=== PATIENT | male | born 2000 | race Caucasian/White ===

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

== ENCOUNTER 2019-10-11 19:39 | Observation (INO) ==
[2019-10-11] MEDS ORDERED: DiphenhydrAMINE HCL 50 MG/ML VIAL IV STA (19:54)
[2019-10-11] MEDS ORDERED: ACETAMINOPHEN 1,000 MG/100 ML VIAL IV STA (19:54)
[2019-10-11] MEDS ORDERED: SODIUM CHLORIDE 0.9% 1000ML 1,000 ML IV ONE (19:54)
[2019-10-11 20:01] LABS: Basophils # (auto) 0.02 K/uL (0-0.2); Basophils % (auto) 0.2 %; Eosinophils # (auto) 0.16 K/uL (0-0.5); Eosinophils % (auto) 1.4 %; Hematocrit (blood only) 41.5 % (42-52); Hemoglobin 14.9 g/dL (14.0-18.0); Immature Granulocytes # (auto) 0.03 K/uL (0.00-0.02); Immature Granulocytes % (auto) 0.3 %; Lymphocytes # (auto) 1.81 K/uL (1.2-3.4); Lymphocytes % (auto) 15.3 %; Mean Corpuscular Hemoglobin 31.8 pg (25-34); Mean Corpuscular Hgb Conc 35.9 g/dL (32-36); Mean Corpuscular Volume 88.7 fL (80-100); Mean Platelet Volume 11.8 fL (7.4-10.4); Monocytes # (auto) 1.03 K/uL (0.11-0.59); Monocytes % (auto) 8.7 %; Neutrophils # (auto) 8.77 K/uL (1.4-6.5); Neutrophils % (auto) 74.1 %; Platelet Count 168 K/uL (130-400); RDW Coefficient of Variation 12.4 % (11.5-14.5); RDW Standard Deviation 39.5 fL (36.4-46.3); Red Blood Count 4.68 M/uL (4.7-6.1); White Blood Count 11.82 K/uL (4.8-10.8)
[2019-10-11 20:40] LABS: Albumin Globulin Ratio 1.2 (0.9-2); BUN Creatinine Ratio 17.4 (10-20); Bilirubin,Total 0.3 mg/dl (0.2-1); Calcium 8.8 mg/dl (8.5-10.1); Creatinine Clr Calc Pharmacy 145.7 ml/min; Est GFR (African American) 128.1; Est GFR (Non-African American) 110.5; Globulin 3.3 gm/dl (2.5-4.0); Potassium 3.9 mmol/L (3.5-5.1); Total Protein 7.3 gm/dl (6.4-8.2)
[2019-10-11] MEDS ORDERED: IOVERSOL 100ml IV PRN (20:53)
[2019-10-11 21:13] LABS: Appearance Urine Clear (Clear); Bilirubin Urine Negative (Negative); Blood Urine Negative (Negative); Color Urine Yellow; Glucose Urine UA Negative (Negative); Ketones Urine Negative (Negative); Leukocyte Esterase Urine Negative (Negative); Nitrite Urine Negative (Negative); Protein Urine Negative (Negative); Specific Gravity Urine 1.025 (1.000-1.030); Urobilinogen Urine Negative (Negative); pH Urine 5.5 (4.5-7.5)
--- NOTE | 2019-10-11 21:19 | CT Scan Report ---
CT abd pelvis IV con only CT DOSE: 533.61 mGy.cm HISTORY: Flank pain right sided abd pain TECHNIQUE: Multiaxial CT images of the abdomen and pelvis were performed following the use of intrave nous contrast. A dose lowering technique was utilized adhering to the principles of ALARA. COMPARISON STUDY: None. FINDINGS: Lung bases are clear. Liver spleen and pancreas are unremarkable. Kidneys are considered ne gative for hydronephrosis or nephrocalcinosis. The appendix is identified immediately inferior to the right hepatic lobe. There is a small contained appendicolith. This measures 5 mm. Appendix demonstrates a maximum diameter 1 cm. There is moderate periappendiceal infiltrative change. No evidence for abscess collection or obstructive change. The bowel pattern otherwise is nonobstructive. There are findings of mild reactive mesenteric adenopathy. No evidence for drainable abscess collection or obstructive change. No free fluid within the pelvic c ul-de-sac. Bladder is mildly distended. Scattered colonic diverticuli with no evidence for diverticulitis. IMPRESSION: 1. Acute appendicitis. 2. Small 5 mm appendicolith. 3. Mild periappendiceal infiltrative change. 4. No evidence for abscess collection or obstructive change. 5. Moderate reactive mesenteric adenopathy ACT 112: Negative or not required by law. The above report was generated using voice recognition software. It may contain grammatical, syntax or spelling errors. Electronically signed by: Андрей Lundy M.D. 10/11/2019 9:18 PM
[2019-10-11] MEDS ORDERED: cefOXitin 2,000 MG/60 ML BAG IV STA ×2 (21:22→22:24)
[2019-10-11] MEDS ORDERED: MoRPHine SULFATE 10 MG/ML CARP/VIAL IV STA (21:22)
--- NOTE | 2019-10-11 21:30 | Emergency Department Note ---
Impression & Plan Acute appendicitis, Acute abdominal pain in right lower quadrant ED Provider Note NAME: JUANITA Meadows YOUNG AGE: 19 SEX: M ARRIVES VIA: Walk-In INFORMANT: Patient, ED PROVIDER(S): Adria Pineda MD CHIEF COMPLAINT: Abdominal pain PLAN: Disposition: Admit MEDICAL DECISION MAKING: The patient is a pleasant 27-year-old gentleman with a past medical history of Tourette's syndrome who presents emergency department for evaluation of right-sided abdominal pain that has been evolving over the past 4 days. The patient has any fevers, chills, nausea, vomiting, diarrhea. He reports he has been able to eat but not as much as usual as this provokes his pain. Of note, the patient was seen in the emergency department for similar symptoms on August 19 and also February 17, 2019. Reports these symptoms are similar but worse in severity. On arrival the patient is no acute distress, afebrile stable vital signs. On exam patient has mild right lower quadrant tenderness without guarding or rebound. WBC 11.8. Hemoglobin and platelets within normal limits. Chemistry without acidosis. Electrolytes and LFTs unremarkable. Lipase within normal limits. UA negative. CT of abdomen pelvis was performed and demonstrates findings consistent with acute appendicitis with the appendix demonstrating a maximum diameter of 1 cm with moderate periappendiceal infiltrative change and a 5 mm appendicolith. The patient was updated on the CT findings. He was ordered for cefoxitin. Case was discussed with Dr. Murillo, general surgery on-call who evaluated the patient at the bedside and admitted the patient to the OR. Triage Nursing notes reviewed and agree them. Prior medical records reviewed Vital Signs: reviewed and remarkable for no significant abnormalities Differential diagnosis: Appendicitis, testicular torsion, infections, diverticulitis, UTI, obstruction, mesenteric ischemia, aortic pathology, inflammatory bowel disease, renal colic, PUD, pancreatitis, biliary pathology, hernia, volvulus, constipation, as well as other pathologies. ER treatment provided: See below. Laboratory studies: See below Imaging studies: CT abd pelvis IV con only CT DOSE: 533.61 mGy.cm HISTORY: Flank pain right sided abd pain TECHNIQUE: Multiaxial CT images of the abdomen and pelvis were performed following the use of intravenous contrast. A dose lowering technique was utilized adhering to the principles of ALARA. COMPARISON STUDY: None. FINDINGS: Lung bases are clear. Liver spleen and pancreas are unremarkable. Kidneys are considered negative for hydronephrosis or nephrocalcinosis. The appendix is identified immediately inferior to the right hepatic lobe. There is a small contained appendicolith. This measures 5 mm. Appendix demonstrates a maximum diameter 1 cm. There is moderate periappendiceal infiltrative change. No evidence for abscess collection or obstructive change. The bowel pattern otherwise is nonobstructive. There are findings of mild reactive mesenteric adenopathy. No evidence for drainable abscess collection or obstructive change. No free fluid within the pelvic cul-de-sac. Bladder is mildly distended. Scattered colonic diverticuli with no evidence for diverticulitis. IMPRESSION: 1. Acute appendicitis. 2. Small 5 mm appendicolith. 3. Mild periappendiceal infiltrative change. 4. No evidence for abscess collection or obstructive change. 5. Moderate reactive mesenteric adenopathy Consultation(s): Dr. Murillo, general surgery on-call HPI: The patient is a pleasant 27-year-old gentleman with a past medical history of Tourette's syndrome who presents emergency department for evaluation of right-sided abdominal pain that has been evolving over the past 4 days. The patient has any fevers, chills, nausea, vomiting, diarrhea. He reports he has been able to eat but not as much as usual as this provokes his pain. Of note, the patient was seen in the emergency department for similar symptoms on August 19 and also February 17, 2019. Reports these symptoms are similar but worse in severity. ROS: See above HPI for pertinent positives & negatives. A total of 10 systems reviewed and were otherwise negative. PAST MEDICAL HISTORY:See Below PAST SURGICAL HISTORY:See Below FAMILY HISTORY:See Below SOCIAL HISTORY:See Below HOME MEDICATIONS:See Below ALLERGIES:See Below VITALS:See Below PHYSICAL EXAMINATION: GENERAL: Awake, alert, well-appearing, in no distress HENT: Normocephalic, atraumatic. Oropharynx with dry mucous membranes and otherwise unremarkable. EYES: Normal conjunctiva. Sclera non-icteric. NECK: Supple. No nuchal rigidity. FROM. No JVD. RESPIRATORY: Clear to auscultation. CARDIAC: Regular rate, normal rhythm. Extremities warm and well perfused. Pulses equal. ABDOMEN: Soft, non-distended. Mild right lower quadrant tenderness to palpation. No rebound or guarding. No masses. RECTAL: Deferred. MUSCULOSKELETAL: Chest examination reveals no tenderness. The back is symmetrical on inspection without obvious abnormality. There is no CVA tenderness to palpation. No joint edema. LOWER EXTREMITIES: Calves are equal size bilaterally and non-tender. No edema. No discoloration. NEURO: Normal sensorium. No sensory or motor deficits noted. SKIN: No rash or jaundice noted. Adria Pineda MD Past Med/Surg History Medical History Tourettes syndrome (Chronic) Surgical History S/P right knee arthroscopy Social History Preferred Language: [place] Feels Safe at Home: Yes Smoking Status: Never smoker Allergies Allergies Allergy/AdvReac Type Severity Reaction Status Date / Time No Known Allergies Allergy Verified 10/11/19 20:00 Home Meds Home Medications Medication Instructions Recorded Confirmed fluoxetine 20 mg PO HS 02/17/19 10/11/19 aripiprazole 5 mg PO HS 08/20/19 10/11/19 Results & Data (ED) Vital Signs Vital Signs - 24 hr 10/11/19 19:41 10/11/19 20:10 10/11/19 21:01 Temperature 36.6 C Temperature Source Oral Pulse Rate 82 Pulse Rate [Apical] 79 81 Pulse Rhythm Regular Pulse Strength Normal Respiratory Rate 20 18 18 Respiratory Effort / Characteristics Non-Labored Spontaneous Respiratory Depth Normal Respiratory Pattern Regular Blood Pressure 131/78 Blood Pressure [Left Arm] 130/68 131/71 Blood Pressure Mean 95 Blood Pressure Mean [Left Arm] 88 91 Blood Pressure Position Sitting Pulse Oximetry 100 99 99 Oxygen Delivery Method Room Air Room Air Room Air Sepsis Recent Fever Within 48 Hours No Sepsis New/Unexplained Change in Mental Status No Sepsis Action Taken by Nursing No Action Required 10/11/19 21:30 10/11/19 22:37 Temperature Temperature Source Pulse Rate Pulse Rate [Apical] 85 78 Pulse Rhythm Pulse Strength Respiratory Rate 18 18 Respiratory Effort / Characteristics Respiratory Depth Respiratory Pattern Blood Pressure Blood Pressure [Left Arm] 123/50 L 123/54 L Blood Pressure Mean Blood Pressure Mean [Left Arm] 74 77 Blood Pressure Position Pulse Oximetry 99 99 Oxygen Delivery Method Room Air Room Air Sepsis Recent Fever Within 48 Hours Sepsis New/Unexplained Change in Mental Status Sepsis Action Taken by Nursing Laboratory Data Attestation: I reviewed the patient's lab results. Result diagrams: 10/11/19 19:52 10/11/19 19:52 Lab Results 10/11/19 10/11/19 10/11/19 Range/Units 19:52 19:52 21:02 WBC 11.82 H (4.8-10.8) K/uL RBC 4.68 L (4.7-6.1) M/uL Hgb 14.9 (14.0-18.0) g/dL Hct 41.5 L (42-52) % MCV 88.7 (80-100) fL MCH 31.8 (25-34) pg MCHC 35.9 (32-36) g/dL RDW Std Deviation 39.5 (36.4-46.3) fL RDW Coeff of Sarah 12.4 (11.5-14.5) % Plt Count 168 (130-400) K/uL MPV 11.8 H (7.4-10.4) fL Immature Gran % (Auto) 0.3 % Neut % (Auto) 74.1 % Lymph % (Auto) 15.3 % [place] % (Auto) 8.7 % Eos % (Auto) 1.4 % Baso % (Auto) 0.2 % Immature Gran # (Auto) 0.03 H (0.00-0.02) K/uL Neut # (Auto) 8.77 H (1.4-6.5) K/uL Lymph # (Auto) 1.81 (1.2-3.4) K/uL [place] # (Auto) 1.03 H (0.11-0.59) K/uL Eos # (Auto) 0.16 (0-0.5) K/uL Baso # (Auto) 0.02 (0-0.2) K/uL Sodium 139 (136-145) mmol/L Potassium 3.9 (3.5-5.1) mmol/L Chloride 105 (98-107) mmol/L Carbon Dioxide 29 (21-32) mmol/L Anion Gap 5.0 (3-11) BUN 17 (7-18) mg/dl Creatinine 0.98 (0.6-1.4) mg/dl Est Cr Clr Drug Dosing 145.7 ml/min Est GFR ( Amer) 128.1 Est GFR (Non-Af Amer) 110.5 BUN/Creatinine Ratio 17.4 (10-20) Glucose 109 H (70-99) mg/dl Calcium 8.8 (8.5-10.1) mg/dl Total Bilirubin 0.3 (0.2-1) mg/dl AST 36 (15-37) U/L ALT 51 (12-78) U/L Alkaline Phosphatase 95 (45-117) U/L Total Protein 7.3 (6.4-8.2) gm/dl Albumin 4.0 (3.4-5.0) gm/dl Globulin 3.3 (2.5-4.0) gm/dl Albumin/Globulin Ratio 1.2 (0.9-2) Lipase 103 (73-393) U/L Urine Color Yellow Urine Appearance Clear (Clear) Urine pH 5.5 (4.5-7.5) Ur Specific [place] 1.025 (1.000-1.030) Urine Protein Negative (Negative) Urine Glucose (UA) Negative (Negative) Urine Ketones Negative (Negative) Urine Blood Negative (Negative) Urine Nitrite Negative (Negative) Urine Bilirubin Negative (Negative) Urine Urobilinogen Negative (Negative) Ur Leukocyte Esterase Negative (Negative) Administered Medications Ioversol (Optiray 320 100ml) 93 ml IV ONCE PRN PRN Reason: Interaction Checking Stop: 10/15/19 20:52 Last Admin: 10/11/19 20:53 Dose: 93 ml Documented by: [id number] Discontinued Medications Diphenhydramine HCl (Benadryl) 25 mg IV NOW STA Stop: 10/11/19 19:55 Last Admin: 10/11/19 20:08 Dose: 25 mg Documented by: [id number] Sodium Chloride (Nss 1000ml) 1,000 mls @ 999 mls/hr IV .Q1H1M ONE Stop: 10/11/19 20:54 Last Infusion: 10/11/19 21:08 Dose: 0 mls/hr Documented by: [id number] Admin: 10/11/19 20:07 Dose: 999 mls/hr Documented by: [id number] Acetaminophen (Ofirmev) 1,000 mg in 100 mls @ 400 mls/hr IV NOW STA Stop: 10/11/19 20:08 Last Infusion: 10/11/19 20:28 Dose: 0 mls/hr Documented by: [id number] Admin: 10/11/19 20:09 Dose: 400 mls/hr Documented by: [id number] Cefoxitin Sodium (Mefoxin) 2,000 mg in 60 mls @ 100 mls/hr IV NOW STA Stop: 10/11/19 21:57 Last Infusion: 10/11/19 22:16 Dose: 0 mls/hr Documented by: [id number] Admin: 10/11/19 21:35 Dose: 100 mls/hr Documented by: [id number] Morphine Sulfate (Morphine Sulfate) 8 mg IV NOW STA Stop: 10/11/19 21:23 Last Admin: 10/11/19 21:35 Dose: 8 mg Documented by: [id number] Blood Pressure Blood Pressure Findings: Normal blood pressure Discharge Plan Visit Data *Final* Discharge Date/Time: 10/11/19 22:53 Chief Complaint: Abdominal Pain Stated Complaint: SEVERE STOMACH PAIN ED Provider: Adria Pineda Discharge Problem: Acute appendicitis, Acute abdominal pain in right lower quadrant Patient Disposition: Still a Patient Discharge Instructions Interventions: ED Discharge Assessment Last Done: 10/11/19 22:53 Discharge Problem: Acute appendicitis Qualifiers: Acute appendicitis type: unspecified acute appendicitis type Qualified Code(s): K35.80 - Unspecified acute appendicitis
--- NOTE | 2019-10-11 22:29 | Surgery Consultation ---
Date of Consultation October 11, 2019 Assessment & Plan (1) Acute abdominal pain in right lower quadrant: pt is a 19 year-old male who presents to ER with 4 days history RLQ Pain, IMP: acute abdominal pain, acute appendicitis, Plan, I recommend to do laparoscopic appendectomy, possible open, D/W benefits, risks and alternatives of the surgery, the risks - infection, bleeding, injury bowel, abscess, pt understood, he agrees with surgery, I answered all questions, (2) Acute appendicitis: History of Present Illness History of Present Illness CC: abdominal pain HPI: The patient is a pleasant 27-year-old gentleman with a past medical history of Tourette's syndrome who presents emergency department for evaluation of right-sided abdominal pain that has been evolving over the past 4 days. The patient has any fevers, chills, nausea, vomiting, diarrhea. He reports he has been able to eat but not as much as usual as this provokes his pain. Of note, the patient was seen in the emergency department for similar symptoms on August 19 and also February 17, 2019. Reports these symptoms are similar but worse in severity. I ( Hyacinth Murillo MD) reviewed pt's H/P , labs, CT scan with pt, pt is still have RLQ pain, ROS: See above HPI for pertinent positives & negatives. A total of 10 systems reviewed and were otherwise negative. PAST MEDICAL HISTORY: See Below PAST SURGICAL HISTORY: See Below FAMILY HISTORY: See Below SOCIAL HISTORY: See Below HOME MEDICATIONS: See Below ALLERGIES: See Below Allergies Allergy/AdvReac Type Severity Reaction Status Date / Time No Known Allergies Allergy Verified 10/11/19 20:00 Home Medications Home Medications Medication Instructions Recorded Confirmed Type fluoxetine 20 mg PO HS 02/17/19 10/11/19 History aripiprazole 5 mg PO HS 08/20/19 10/11/19 History Patient History Medical History Tourettes syndrome (Chronic) Social History Preferred Language: Welsh Feels Safe at Home: Yes Smoking Status: Never smoker Review of Systems Review of Systems: All systems reviewed & are unremarkable except as noted in HPI & below Constitutional: as per Subjective / HPI Eyes: as per Subjective / HPI Ear, Nose, Mouth, Throat: as per Subjective / HPI Respiratory: as per Subjective / HPI Cardiovascular: as per Subjective / HPI Gastrointestinal: as per Subjective / HPI RLQ pain Genitourinary: + as per Subjective / HPI Musculoskeletal: as per Subjective / HPI Integumentary: as per Subjective / HPI Neurologic: as per Subjective / HPI Psychiatric: as per Subjective / HPI Endocrine: as per Subjective / HPI Hematologic / Lymphatic: as per Subjective / HPI Physical Exam 2 Constitutional: WD/WN, vitals as above well developed and well nourished Eyes: PERRL, conjunctivae normal, anicteric sclerae ENMT: external ear and nose normal, oropharynx normal Neck: trachea midline, no thyromegaly Respiratory: normal respiratory effort, lungs clear to auscultation Cardiovascular: RRR, no murmur, no edema Rate/Rhythm: regular rate and regular rhythm Heart Sounds: normal S1 and normal S2 Gastrointestinal (Abdomen): Percussion/Palpation: + abdomen tender and abdomen soft tenderness at RLQ with rebound pain, no distend, BS + Musculoskeletal: no cyanosis or clubbing, extremities motor strength 5/5 Skin: no rashes, warm and dry Neurologic: patellar DTR's 2+ bilat, sensation intact Psychiatric: Orientation: alert and oriented x 3 Results & Data Vital Signs (Past 12 Hours) Vital Signs Temp Pulse Pulse Resp BP BP Pulse Ox 10/11/19 21:30 85 18 123/50 L 99 10/11/19 21:01 81 18 131/71 99 10/11/19 20:10 79 18 130/68 99 10/11/19 19:41 36.6 C 82 20 131/78 100 Laboratory Results Abnormal lab results 10/11/19 10/11/19 Range/Units 19:52 19:52 WBC 11.82 H (4.8-10.8) K/uL RBC 4.68 L (4.7-6.1) M/uL Hct 41.5 L (42-52) % MPV 11.8 H (7.4-10.4) fL Immature Gran # (Auto) 0.03 H (0.00-0.02) K/uL Neut # (Auto) 8.77 H (1.4-6.5) K/uL [place] # (Auto) 1.03 H (0.11-0.59) K/uL Glucose 109 H (70-99) mg/dl Diagnostic Findings CT abd pelvis IV con only CT DOSE: 533.61 mGy.cm HISTORY: Flank pain right sided abd pain TECHNIQUE: Multiaxial CT images of the abdomen and pelvis were performed following the use of intravenous contrast. A dose lowering technique was utilized adhering to the principles of ALARA. COMPARISON STUDY: None. FINDINGS: Lung bases are clear. Liver spleen and pancreas are unremarkable. Kidneys are considered negative for hydronephrosis or nephrocalcinosis. The appendix is identified immediately inferior to the right hepatic lobe. There is a small contained appendicolith. This measures 5 mm. Appendix demonstrates a maximum diameter 1 cm. There is moderate periappendiceal infiltrative change. No evidence for abscess collection or obstructive change. The bowel pattern otherwise is nonobstructive. There are findings of mild reactive mesenteric adenopathy. No evidence for drainable abscess collection or obstructive change. No free fluid within the pelvic cul-de-sac. Bladder is mildly distended. Scattered colonic diverticuli with no evidence for diverticulitis. IMPRESSION: 1. Acute appendicitis. 2. Small 5 mm appendicolith. 3. Mild periappendiceal infiltrative change. 4. No evidence for abscess collection or obstructive change. 5. Moderate reactive mesenteric adenopathy
--- NOTE | 2019-10-11 22:36 | History & Physical Bridge Note ---
Date of Service October 11, 2019 History & Physical Bridge Note I have examined the patient, reviewed the History & Physical and in the interval since the performance of the History & Physical I have noted the following changes of clinical significance: no changes noted
[2019-10-11] MEDS ORDERED: SUCCINYLCHOLINE CHLORIDE 20 MG/ML 10 ML VIAL ONE (22:37)
[2019-10-11] MEDS ORDERED: ePHEDrine sulfate 50 MG/ML AMP ONE (22:37)
[2019-10-11] MEDS ORDERED: PHENYLEPHRINE HCL 10 MG/ML VIAL ONE (22:37)
[2019-10-11] MEDS ORDERED: ONDANSETRON INJ 2 MG/ML 2 ML VIAL ONE (22:37)
[2019-10-11] MEDS ORDERED: PROPOFOL IV EMULSION 10 MG/ML 20 ML VIAL IV ONE (22:37)
[2019-10-11] MEDS ORDERED: NEOSTIGMINE METHYLSULFATE 5 MG/5 ML SYR ONE ×2 (22:37→22:41)
[2019-10-11] MEDS ORDERED: GLYCOPYRROLATE 0.2 MG/ML VIAL ONE (22:37)
[2019-10-11] MEDS ORDERED: LIDOCAINE HCL 2% 2 ML VIAL/AMP(20MG/ML) INFIL ONE (22:37)
[2019-10-11] MEDS ORDERED: DEXAMETHASONE SOD INJ 4 MG/ML VIAL ONE (22:37)
[2019-10-11] MEDS ORDERED: MIDAZOLAM HCL 1 MG/ML 2ML VIAL ONE (22:38)
[2019-10-11] MEDS ORDERED: fentaNYL citrate 100 MCG/2 ML VIAL ONE (22:38)
--- NOTE | 2019-10-11 22:52 | Anesthesiology Consultation ---
Date of Service October 11, 2019 Assessment & Plan Chart Review Chart Review: Acceptable Risk for Surgery Consults Requested none Teaching & Discussion no vomiting, no h/o difficult intubation. consider glidescope. ASA [id number] Proposed Anesthesia Anesthesia Type: General (Rsi) Risk / Benefits Reviewed With: PT / POA / Parent / Guardian, Accepts Plan and Informed Consent Obtained History Surgery Operation Date: 10/11/19 22:40 Proposed Procedures p Laparoscopic Appendectomy - Hyacinth Murillo MD Height/Weight Height: 6 ft Weight: 97.8 kg Allergies Allergy/AdvReac Type Severity Reaction Status Date / Time No Known Allergies Allergy Verified 10/11/19 20:00 Medications Home Medications Medication Instructions Recorded Confirmed Last Taken fluoxetine 20 mg PO HS 02/17/19 10/11/19 02/16/19 aripiprazole 5 mg PO HS 08/20/19 10/11/19 Unknown Active Medications Generic Name Dose Route Start Last Admin Trade Name Freq PRN Reason Stop Dose Admin Ioversol 93 ml 10/11/19 20:53 10/11/19 20:53 Optiray 320 100ml IV 10/15/19 20:52 93 ml ONCE PRN Administration Interaction Checking NPO Date Last Intake of Fluids: 10/11/19 Time Last Intake of Fluids: 18:30 Date Last Intake of Solids: 10/11/19 Time Last Intake of Solids: 12:30 Past Medical History Medical History Tourettes syndrome (Chronic) Exercise / Class Metabolic Activity II 4-5 Yardwork/Stairs/Walk up hill Past Surgical History Surgical History (Updated 10/11/19 @ 23:04 by Bonnie Calhoun DO) S/P right knee arthroscopy Past Anesthesia History No Hx of Anesthesia Complications and No Family Hx of Anesthesia Complications History of PONV No Hx of PONV and No Hx of Motion Sickness Social History Smoking Status: Never smoker Physical Exam Vital Signs Last Vital Signs Temp 36.6 C 10/11/19 19:41 Pulse 78 10/11/19 22:37 Resp 18 10/11/19 22:37 BP 123/54 L 10/11/19 22:37 Pulse Ox 99 10/11/19 22:37 ENMT Mouth: + small oral opening; no TMJ abnormality Thyromental Distance: > or= 3.5 Finger Breadths Mallampati Class: III Neck normal visual inspection and trachea midline; neck extension not limited Respiratory normal respiratory effort Auscultation: lungs clear to auscultation bilaterally Cardiovascular Rate/Rhythm: regular rate and regular rhythm Heart Sounds: no murmur Musculoskeletal Spine: normal cervical ROM Extremities: full ROM of extremities Neurologic moves all extremities Psychiatric Orientation: alert and oriented x 3 Testing Laboratory Results 10/11/19 19:52 10/11/19 19:52 Urine Color Yellow 10/11/19 21:02 Urine Appearance Clear (Clear) 10/11/19 21:02 Urine pH 5.5 (4.5-7.5) 10/11/19 21:02 Ur Specific [place]ner 1.025 (1.000-1.030) 10/11/19 21:02 Urine Protein Negative (Negative) 10/11/19 21:02 Urine Glucose (UA) Negative (Negative) 10/11/19 21:02 Urine Ketones Negative (Negative) 10/11/19 21:02 Urine Nitrite Negative (Negative) 10/11/19 21:02 Ur Leukocyte Esterase Negative (Negative) 10/11/19 21:02
[2019-10-11] MEDS ORDERED: BACITRACIN OINT 15 GM TUBE ONE (22:54)
[2019-10-11] MEDS ORDERED: LIDOCAINE HCL 1% 20 ML VIAL ONE ×2 (22:54→23:19)
[2019-10-11] MEDS ORDERED: BUPIVACAINE 0.5 % 5 MG/1 ML MPF 30ML VIAL ONE ×2 (22:54→23:19)
[2019-10-11] MEDS ORDERED: ATROPINE SULFATE 0.1 MG/ML 10ML SYR IV PRN (23:05)
[2019-10-11] MEDS ORDERED: ePHEDrine sulfate 50 MG/ML AMP IV PRN (23:05)
[2019-10-11] MEDS ORDERED: MoRPHine SULFATE 10 MG/ML CARP/VIAL IV PRN (23:05)
[2019-10-11] MEDS ORDERED: MEPERIDINE HCL 25 MG/ML CARP/VIAL IV PRN (23:05)
[2019-10-11] MEDS ORDERED: ONDANSETRON INJ 2 MG/ML 2 ML VIAL IV PRN (23:05)
--- NOTE | 2019-10-12 00:36 | Post Operative Brief Note ---
Immediate Post Op Note v1 Date of Surgery October 12, 2019 Pre & Post Diagnosis Operation Date: 10/11/19 22:40 Pre-Op Diagnosis: acute appendicitis Post-Op Diagnosis: acute appendicitis I identified the patient and participated in the time-out.: Yes Procedure Operation Date: 10/11/19 22:40 Actual Procedures p Laparoscopic Appendectomy(Not Applicable) - Hyacinth Murillo MD Surgeon Hyacinth Murillo MD [place] [facility] nursing surgical services director Estimated Blood Loss 10 Findings Consistent with Post-Op Diagnosis Fluids 1100ml Specimens appendix Anesthesia Type General Complications none Disposition Accompanied Patient To Recovery: Yes Disposition: Recovery Room Overlapping Procedure I was immediately available: during the entire case.
[2019-10-12] MEDS ORDERED: ONDANSETRON INJ 2 MG/ML 2 ML VIAL IV PRN (00:39)
[2019-10-12] MEDS ORDERED: fentaNYL citrate 100 MCG/2 ML VIAL ONE (01:09)
[2019-10-12] MEDS: fentaNYL citrate 100 MCG/2 ML VIAL IV PRN ×4 (01:12→01:27)
--- NOTE | 2019-10-12 01:15 | Anesthesiology Progress Note ---
Date of Service October 12, 2019 Anesthesia Post Procedure Vital Signs Vital Signs: Temp Pulse Pulse Resp BP BP Pulse Ox 10/11/19 22:37 78 18 123/54 L 99 10/11/19 21:30 85 18 123/50 L 99 10/11/19 21:01 81 18 131/71 99 10/11/19 20:10 79 18 130/68 99 10/11/19 19:41 36.6 C 82 20 131/78 100 Pain Intensity Right Lower Abdomen: Pain Intensity: 8 Transfer of Care Handoff Completed per policy Notes Mental Status: alert / awake / arousable and participated in evaluation Nausea / Vomiting: adequately controlled Pain: adequately controlled Airway Patency, RR, SpO2: stable & adequate BP & HR: stable & adequate Hydration State: stable & adequate Anesthetic Complications: no major complications apparent and Pt Satisfied with anesthetic care
--- NOTE | 2019-10-12 01:50 | Operative Report (OR) ---
DATE OF OPERATION: 10/11/2019 PREOPERATIVE DIAGNOSIS: Acute appendicitis. POSTOPERATIVE DIAGNOSIS: Acute appendicitis. PROCEDURE: Laparoscopic appendectomy. SURGEON: Hyacinth Murillo MD ANESTHESIA: General. ESTIMATED BLOOD LOSS: About 10 mL. FINDINGS: Acute appendicitis. COMPLICATIONS: None. INDICATIONS FOR THE PROCEDURE: This is a 19-year-old gentleman who presented to the ER with 4 days history of right lower quadrant pain. The patient had a CT scan diagnosis of acute appendicitis. I recommended to do laparoscopic appendectomy, possible open. I did talk to the patient about the benefits, risks, alternate procedures. I indicated the risks may include but not limited such as bleeding, infection, abscess, and injury to the bowel. The patient understands. He signed informed consent and I answered all questions. DETAILS OF PROCEDURE: We brought in the patient to the OR, put the patient in the supine position. The patient received SCDs on bilateral legs to prevent DVT. Also, patient received 2 g cefoxitin IV for prophylactic antibiotic. The patient received general anesthesia without difficulty. The abdomen was prepped and draped in routine sterile fashion. After time-out, I injected local anesthesia by using 1% lidocaine mixed with 0.5% Marcaine just above the umbilicus. Then I made a small incision just above umbilicus, opened fascia, and opened peritoneum under direct vision, put a Lucian trocar in, connected to CO2 to create pneumoperitoneum. Flow rate is 6 liter per minute. Pressure not more than 14 mmHg. Once we got a nice pneumoperitoneum, we put a camera in and looked around the abdomen. It showed normal finding on the small bowel and large bowel; however, the patient had a large inflammation on the appendix, confirmed diagnosis of acute appendicitis. Then we put another two 5 mm trocars on the left lower quadrant area. Once all trocars in, we used a grasper to hold the appendix, used the harmonic to take down appendiceal, rechecked, no active bleeding. Then I used a 45 mm Endo-LIBBY staple for transection on the base of the appendix, rechecked the staple line intact, and no active bleeding, no leak. Then we removed the appendix through the catch bag, then we reinserted Lucian trocar in, connected to CO2 to create pneumoperitoneum. Again looked around the abdomen, the staple line intact. No leak, no active bleeding. Then we removed all trocar under direct vision. No active bleeding from the trocar sites. Pneumoperitoneum was released. Then I closed the umbilical incision, fascial layer by using #1 Vicryl [id number] x2, closed subcutaneous layer by using 2-0 Vicryl interruptedly, closed skin by using 4-0 Vicryl continuous running, closed another two 5 mm trocar sites skin only by using 4-0 Vicryl. Then we put the dressing on. The patient tolerated the procedure well. All instrument, needle, and sponge count were correct x2 at the end of the case. The patient transferred to recovery room in stable condition. The specimen sent to pathology. I attest to the content of the Intraoperative Record and any orders documented therein. Any exception s are noted below.
[2019-10-12] MEDS ORDERED: OXYCODONE/ACETAMINOPHEN 5mg/325mg TAB PO PRN (01:59)
[2019-10-12] MEDS ORDERED: LACTATED RINGER'S 1,000 ML IV SCH (01:59)
[2019-10-12] MEDS ORDERED: HYDROmorphone INJ 0.5 MG/0.5 ML SYR IV PRN (01:59)
[2019-10-12 05:40] LABS: Basophils # (auto) 0.02 K/uL (0-0.2); Basophils % (auto) 0.2 %; Eosinophils # (auto) 0.03 K/uL (0-0.5); Eosinophils % (auto) 0.3 %; Hematocrit (blood only) 39.2 % (42-52); Hemoglobin 13.4 g/dL (14.0-18.0); Immature Granulocytes # (auto) 0.02 K/uL (0.00-0.02); Immature Granulocytes % (auto) 0.2 %; Lymphocytes # (auto) 1.39 K/uL (1.2-3.4); Lymphocytes % (auto) 12.2 %; Mean Corpuscular Hgb Conc 34.2 g/dL (32-36); Mean Corpuscular Volume 90.7 fL (80-100); Mean Platelet Volume 11.6 fL (7.4-10.4); Monocytes # (auto) 0.99 K/uL (0.11-0.59); Monocytes % (auto) 8.7 %; Neutrophils # (auto) 8.97 K/uL (1.4-6.5); Neutrophils % (auto) 78.4 %; Platelet Count 166 K/uL (130-400); RDW Coefficient of Variation 12.6 % (11.5-14.5); RDW Standard Deviation 42.1 fL (36.4-46.3); Red Blood Count 4.32 M/uL (4.7-6.1); White Blood Count 11.42 K/uL (4.8-10.8)
--- NOTE | 2019-10-12 09:01 | Discharge Summary (DS) ---
ADMITTING DIAGNOSIS: Acute appendicitis. DISCHARGE DIAGNOSIS: Acute appendicitis. OPERATION: Laparoscopic appendectomy. SURGEON: Hyacinth Murillo MD. DETAILS OF DISCHARGE SUMMARY: This is a 19-year-old gentleman who presented to ED with 4 days history of right lower quadrant pain. The patient had a CT scan diagnosis of acute appendicitis. We took the patient to the OR. We did a laparoscopic appendectomy. The patient tolerated the procedure well, and after the procedure, the patient was transferred to the recovery room and later on transferred to regular floor. The patient is doing fine. He tolerates a clear diet and patient does not have any significant abdominal pain. PHYSICAL EXAMINATION: VITAL SIGNS: Temperature is 36.5, respiratory rate is 16, heart rate is 65, blood pressure 117/63, O2 saturation 96% on room air. GENERAL: The patient is alert, awake, oriented x3. HEENT: With normal limitation. NEUROLOGIC: Intact. NECK: No JVD. CHEST: Bilateral lung sounds clear. HEART: Normal S1, S2. No murmur. ABDOMEN: Soft, nondistended. Mild tenderness on the incision site. All incisions intact. No redness, no drainage. Bowel sounds positive. EXTREMITIES: No edema. LABORATORY RESULTS: Showed WBC 11.4, hemoglobin 13.4 . PLAN: Otherwise, the patient is doing fine. The patient wants to go home today. I gave the patient postop care instruction. I will follow up the patient in 2 weeks. The patient understands.
[2019-10-12] MEDS ORDERED: ARIPiprazole 5 MG TAB PO SCH (21:00)
[2019-10-12] MEDS ORDERED: FLUOXETINE HCL 20 MG CAP PO SCH (21:00)
== END 2019-10-12 09:27 | disposition home or self-care (01) ==
LOC: ED 19:39 → OR 22:53 → 3E 22:53